=== PATIENT | female | born 1970 | race Caucasian/White ===

== ENCOUNTER 2017-08-02 10:41 | Emergency (ER) | payer BC ==
[2017-08-02] MEDS ORDERED: Famotidine IV* 10 MG/ML 2 ML (20 mg) IV ONE (11:04)
[2017-08-02] MEDS ORDERED: Ketorolac INJ* 30 MG/ML 1 ML VIAL IV ONE (11:04)
[2017-08-02] MEDS ORDERED: Ondansetron INJ* 2 MG/ML VIAL IV ONE (11:04)
[2017-08-02 11:44] LABS: ABS Basophils 0 10^3/ul (0-0.2); ABS Eosinophils 0 10^3/ul (0-0.6); ABS Lymphocytes 1.5 10^3/ul (1.0-4.8); ABS Monocytes 0.3 10^3/ul (0-0.8); ABS Neutrophils 2.6 10^3/ul (1.5-7.7); ABS Nucleated RBC 0 10^3/ul; Eosinophil % 0.8 % (0-6); Hematocrit 42 % (35-47); Hemoglobin 14.3 g/dl (12.0-16.0); Lymphocyte % 33.6 % (25-47); Mean Corpuscular HGB Conc 34 g/dl (31-36); Mean Corpuscular Hemoglobin 30 pg (27-31); Mean Corpuscular Volume 89 fL (80-97); Mean Platelet Volume 8 um3 (7.4-10.4); Nucleated Red Blood Cells % 0; Platelet Count 346 10^3/ul (150-450); Red Blood Count 4.77 10^6/ul (4.0-5.4); Red Cell Distribution Width 13 % (10.5-15); White Blood Count 4.5 10^3/ul (3.5-10.8)
[2017-08-02 12:01] LABS: EGFR Non-African American 99.9 (>60)
[2017-08-02] MEDS ORDERED: Iohexol 300* (CONTRAST) 10 ML SDV IV ONE (12:27)
--- NOTE | 2017-08-02 13:43 | RAD ---
INDICATION: Epigastric pain. COMPARISON: Comparison is made with a prior CT of the abdomen and pelvis from April 08, 2003. Correlation is made with a prior right upper quadrant ultrasound from August 02, 2017. TECHNIQUE: A CT scan of the abdomen and pelvis was performed with intravenous and oral contrast following intravenous injection of 91 ml of Omnipaque 300 nonionic contrast. Contiguous axial sections were obtained from the lung bases through the symphysis pubis. Images were reconstructed in the coronal and sagittal planes. FINDINGS: There is mild dependent bilateral lower lobe subsegmental atelectasis. No pleural effusion is present. The liver and spleen are within normal limits in size without significant focal abnormality. No calcified gallstones are seen. The pancreas appears to be within normal limits in size. The kidneys and adrenal glands are normal in size. No hydronephrosis is seen. No significant focal renal abnormality is seen. The aorta is normal in caliber and demonstrates homogeneous contrast opacification. No significant enlarged retroperitoneal lymph nodes are seen. The stomach, small and large bowel appear nondistended. The appendix is faintly visualized and does not appear enlarged. No inflammatory changes are seen. There is a moderate to large amount of retained stool present throughout the colon. There is no evidence for diverticulitis or colitis. The uterus is anteverted and normal in size. No free intraperitoneal air or fluid is seen. There is moderate to severe degenerative disc disease at the L5-S1 level. No significant focal osseous abnormality is seen. IMPRESSION: 1. NO EVIDENCE FOR ACUTE FINDING OR CAUSE FOR THE PATIENT'S ABDOMINAL PAIN IS SEEN. 2. MODERATE TO LARGE AMOUNT RETAINED STOOL.
[2017-08-02 14:23] VITALS: BP 129/68
--- NOTE | 2017-08-02 16:31 | ED ---
Isaias Pearl Gabriel, scribed for Adonay Henry MD on 08/02/17 at 1104 . Abdominal Pain/Female - HPI Summary HPI Summary: This patient is a 46 year old F presenting to [facility] with a chief complaint of ABD pain since a week ago. The patient rates the pain 5/10 in severity and located in epigastric region. Patient reports nausea (for months) and vomiting. Patient denies melena and loose stool. Symptoms are exacerbated when she eats. Her LNMP was 07/22/17 and she recently had a febrile illness on 07/14/17. She was seen at this morning where she got an EKG and US both revealed nothing significant so she was referred here for further testing. - History of Current Complaint Chief Complaint: EDGeneral Stated Complaint: BLOOD WORK Time Seen by Provider: 08/02/17 10:54 Hx Obtained From: Patient Onset/Duration: Lasting Weeks - 1, Still Present Timing: Constant Severity Initially: Moderate Severity Currently: Moderate Pain Intensity: 5 Pain Scale Used: 0-10 Numeric Location: Epigastric Radiates: No Aggravating Factor(s): Food Alleviating Factor(s): Nothing Associated Signs and Symptoms: Positive: Vomiting. Negative: Blood in Stool, Diarrhea Allergies/Adverse Reactions: Allergies Allergy/AdvReac Type Severity Reaction Status Date / Time nubane AdvReac See Comment Uncoded 08/02/17 11:52 PMH/Surg Hx/FS Hx/Imm Hx Endocrine/Hematology History: Denies: Hx Diabetes Cardiovascular History: Denies: Hx Hypertension, Hx Myocardial Infarction Respiratory History: Reports: Hx Asthma - exercises induced History: Denies: Hx Acute Renal Failure Musculoskeletal History: Denies: Hx Arthritis Neurological History: Denies: Hx CVA, Hx Dementia - Cancer History Hx Chemotherapy: No Hx Radiation Therapy: No - Surgical History Surgery Procedure, Year, and Place: lumpectomy Infectious Disease History: No Infectious Disease History: Denies: Traveled Outside the [place] in Last 30 Days - Family History Known Family History: Positive: Hypertension, Other - CJD Review of Systems Negative: Fever Gastrointestinal: Negative - melena Positive: Abdominal Pain, Vomiting, Nausea. Negative: Diarrhea All Other Systems Reviewed And Are Negative: Yes Physical Exam - Summary Physical Exam Summary: Appearance: Well appearing, no pain distress Skin: warm, dry, reflects adequate perfusion Head/face: normal Eyes: EOMI, CARITO ENT: normal Neck: supple, non-tender Respiratory: CTA, breath sounds present Cardiovascular: RRR, pulses symmetrical Abdomen: soft, tender to RUQ and epigastric region Bowel: present Musculoskeletal: normal, strength/ROM intact, no LE edema Neuro: normal, sensory motor intact, A&Ox3 Triage Information Reviewed: Yes Vital Signs On Initial Exam: Initial Vitals Temp Pulse Resp BP Pulse Ox 98.5 F 71 20 123/56 99 08/02/17 10:48 08/02/17 10:48 08/02/17 10:48 08/02/17 10:48 08/02/17 10:48 Vital Signs Reviewed: Yes Diagnostics - Vital Signs Vital Signs Temp Pulse Resp BP Pulse Ox 08/02/17 10:48 98.5 F 71 20 123/56 99 - Laboratory Lab Results: Lab Results 08/02/17 08/02/17 08/02/17 Range/Units 11:24 11:24 11:24 WBC 4.5 (3.5-10.8) 10^3/ul RBC 4.77 (4.0-5.4) 10^6/ul Hgb 14.3 (12.0-16.0) g/dl Hct 42 (35-47) % MCV 89 (80-97) fL MCH 30 (27-31) pg MCHC 34 (31-36) g/dl RDW 13 (10.5-15) % Plt Count 346 (150-450) 10^3/ul MPV 8 (7.4-10.4) um3 Neut % (Auto) 57.3 (38-83) % Lymph % (Auto) 33.6 (25-47) % Casey % (Auto) 7.7 (1-9) % Eos % (Auto) 0.8 (0-6) % Baso % (Auto) 0.6 (0-2) % Absolute Neuts (auto) 2.6 (1.5-7.7) 10^3/ul Absolute Lymphs (auto) 1.5 (1.0-4.8) 10^3/ul Absolute Monos (auto) 0.3 (0-0.8) 10^3/ul Absolute Eos (auto) 0 (0-0.6) 10^3/ul Absolute Basos (auto) 0 (0-0.2) 10^3/ul Absolute Nucleated RBC 0 10^3/ul Nucleated RBC % 0 Sodium 134 (133-145) mmol/L Potassium 4.2 (3.5-5.0) mmol/L Chloride 102 (101-111) mmol/L Carbon Dioxide 27 (22-32) mmol/L Anion Gap 5 (2-11) mmol/L BUN 13 (6-24) mg/dL Creatinine 0.64 (0.51-0.95) mg/dL Est GFR ( Amer) 128.5 (>60) Est GFR (Non-Af Amer) 99.9 (>60) BUN/Creatinine Ratio 20.3 H (8-20) Glucose 87 (70-100) mg/dL Lactic Acid 0.7 (0.5-2.0) mmol/L Calcium 9.1 (8.6-10.3) mg/dL Total Bilirubin 0.40 (0.2-1.0) mg/dL AST 26 (13-39) U/L ALT 25 (7-52) U/L Alkaline Phosphatase 49 (34-104) U/L C-Reactive Protein 1.49 (< 5.00) mg/L Total Protein 7.3 (6.4-8.9) g/dL Albumin 4.4 (3.2-5.2) g/dL Globulin 2.9 (2-4) g/dL Albumin/Globulin Ratio 1.5 (1-3) Lipase 18 (11.0-82.0) U/L Beta HCG, Quant 1.06 mIU/mL Result Diagrams: 08/02/17 11:24 08/02/17 11:24 Lab Statement: Any lab studies that have been ordered have been reviewed, and results considered in the medical decision making process. - CT CT ABD/Pelvis CT Interpretation Completed By: Radiologist - 1. NO EVIDENCE FOR ACUTE FINDING OR CAUSE FOR THE PATIENT'S ABDOMINAL PAIN IS SEEN. 2. MODERATE TO LARGE AMOUNT RETAINED STOOL. ED physician has reviewed this radiology report. Re-Evaluation - Re-Evaluation First Eval Re-Evaluation Time: 13:47 Change: Improved Comment: Patient is feeling much better her nausea is gone and she was able to sleep. Abdominal Pain Fem Course/Dx - Course Course Of Treatment: pt with upper abd pain. LFTs, lipase wnl. CT abd with contrast is neg aside from consitpation. Tx symptomatically. F/U PMD. - Diagnoses Differential Diagnosis: Positive: Bowel Obstruction, Constipation, Pancreatitis , Peptic Ulcer Disease. Negative: Gall Bladder Disease Provider Diagnoses: Constipation, Epigastric abdominal pain Discharge - Discharge Plan Condition: Good Disposition: HOME Prescriptions: Bisacodyl SUPP* [Dulcolax Supp*] 10 mg PO BID #6 supp Famotidine TAB* [Pepcid 20 MG TAB*] 20 mg PO BID #10 tab Ondansetron HCl [Zofran 4 MG TAB] 4 mg PO TID PRN #12 tab PRN Reason: Nausea Polyethylene Glycol 3350 BTL* [Miralax] 238 gm PO TID #1 btl Sucralfate [Carafate] 1 gm PO Q6H #40 tab Patient Education Materials: Constipation (ED), Acute Abdominal Pain (ED) Referrals: Nereida Calix MD [Primary Care Provider] - Additional Instructions: High fiber diet. Drink plenty of fluids. Return if increased pain, fever, vomiting or other concerns as discussed. The documentation as recorded by the Isaias romero Gabriel accurately reflects the service I personally performed and the decisions made by , Adonay Henry MD.
== END 2017-08-02 14:23 | disposition home or self-care (01) ==
LOC: ED 10:41
DX: R10.13 Epigastric pain (principal); K59.00 Constipation, unspecified; R11.2 Nausea with vomiting, unspecified
CPT/HCPCS: 36415; 74177; 80053; 83605; 83690; 84702; 85025; 86140; 99282; J1885; J2405; Q9967